=== PATIENT | female | born 1990 | race Caucasian/White ===

== ENCOUNTER 2017-11-03 14:56 | Emergency (ER) | payer OTHER ==
[~2017-11-03] VITALS: Ht 160 cm; Wt 64.5 kg
[2017-11-03 15:03] VITALS: BP 105/73; Ht 160 cm; Wt 64.5 kg
== END 2017-11-03 16:34 | disposition home or self-care (01) ==
LOC: ED 14:56
DX: S63.601A Unspecified sprain of right thumb, initial encounter (principal); X58.XXXA Exposure to other specified factors, initial encounter; Y93.89 Activity, other specified; Y92.89 Other specified places as the place of occurrence of the external cause; Y99.8 Other external cause status